=== PATIENT | female | born 1970 | race Hispanic/Latino ===

== ENCOUNTER → 2017-05-02 | Outpatient (CLI) | payer OTHER ==
--- NOTE | 2017-05-03 10:09 | REP ---
BILATERAL MAMMOGRAM: Bilateral mammogram performed in the MLO and CC projections. Routine images as well as implant displaced views are obtained bilaterally. Moderate scattered fibroglandular tissue is seen bilaterally. Questionable nodule is seen in the central left breast, somewhat inferiorly and posteriorly. On the CC view, it is slightly lateral to the nipple line. It appears somewhat oval in shape. It is not definitely visualized on the MLO view but may be inferiorly located. The moderately dense breast parenchyma limits the sensitivity of the mammogram. No clustered microcalcifications are seen. There is no evidence of extracapsular rupture of either implant. IMPRESSION: BI-RADS/ACR category 0 mammogram, incomplete. Additional imaging and/or prior mammograms for comparison. ACR 0 incomplete. Possible oval nodule left breast slightly laterally as seen on the CC view and posteriorly located. It is not definitely seen on the MLO view but may be inferior. Recommend spot compression views and ultrasound to further evaluate. ACR 0 incomplete. This mammogram was interpreted with the aid of an FDA-approved computer-aided detection system. The patient states that she/he has not had a clinical breast exam in over a year. The patient letter being requested is M0. Signed by Amrik Iglesias MD 05/03/2017 03:46 P
== END ==
LOC: M RAD 09:17
PROVIDERS: ATTEND Nurse Practitioner Family
DX: Z12.31 Encounter for screening mammogram for malignant neoplasm of breast (principal); R92.8 Other abnormal and inconclusive findings on diagnostic imaging of breast; Z98.82 Breast implant status

== ENCOUNTER → 2017-05-16 | Outpatient (CLI) | payer OTHER ==
--- NOTE | 2017-05-16 12:09 | REP ---
Digital diagnostic unilateral left breast mammogram with CAD: History: Screening mammography May 02, 2017 was BIRADS category 0 because of a possible 7 mm nodular opacity on the left. Findings: Magnified focal spot compression CC, true ML, and MLO views of the left breast demonstrate that this area compresses away to normal appearing stromal elements. No mass-like lesion or dominant nodule is seen. Breast parenchyma is moderately dense. No spiculation or microcalcification is seen. Impression: BIRADS category 2 benign left breast imaging. Repeat screening mammography recommended in 1 year. BI-RADS/ACR category 2 mammogram. Benign finding(s). Routine annual screening mammography (for women over age 40). This mammogram was interpreted with the aid of an FDA-approved computer-aided detection system. The patient states that she has not had a clinical breast exam in over a year. The patient letter being requested is m#1. Signed by Gray Trejo MD 05/16/2017 04:07 P
== END ==
LOC: M RAD 11:06
PROVIDERS: ATTEND Nurse Practitioner Family
DX: N63.0 Unspecified lump in unspecified breast (principal)

== ENCOUNTER → 2018-07-22 | Outpatient (CLI) | payer OTHER ==
--- NOTE | 2018-07-25 15:38 | DEXA ---
AP SPINE L1 - L4 1.228 0.3 0.4 LT FEMUR TOTAL 0.969 -0.3 0.0 LT NECK 0.911 -0.9 -0.3 RT FEMUR TOTAL 1.006 0.0 0.3 RT NECK 0.936 -0.7 -0.1 TOTAL BODY TOTAL OTHER COMMENTS: Normal bone densitometry of the spine and hips. FOLLOW-UP: Recommendation for the next bone density exam: 5 years. [place]
== END ==
LOC: M WHC 12:56
PROVIDERS: ATTEND Student in an Organized Health Care Education/Training Program
DX: Z13.820 Encounter for screening for osteoporosis (principal); Z92.0 Personal history of contraception

== ENCOUNTER → 2018-07-22 | Outpatient (CLI) | payer OTHER ==
--- NOTE | 2018-07-22 10:26 | REPMRS ---
Patient History The patient states she has not had a clinical breast exam in over a year. No known family history of cancer. Retro-pectoral saline implants in both breasts, 2012. Taking hormonal contraceptives for 12 years. Digital Mammo Screening Bilat: July 22, 2018 - Exam #: [id number] Bilateral CC and MLO view(s) were taken. Technologist: Regina Toscano, Technologist Prior study comparison: May 16, 2017, left breast digital mammo diagnostic unilateral performed at [facility]. May 02, 2017, bilateral digital mammo screening bilat performed at [facility]. FINDINGS: There are scattered fibroglandular densities. The visualized implant margins are smooth. Breast parenchymal density pattern is essentially symmetric. No dominant mass, clustered microcalcification, or architectural distortion is evident on either side. No significant changes when compared with prior studies. Assessment: BI-RADS/ACR category 2 mammogram. Benign Findings. Recommendation Routine screening mammogram of both breasts in 1 year (for women over age 40). This patient's Lifetime Breast Cancer RIsk is estimated at 15.0 %. This mammogram was interpreted with the aid of an FDA-approved computer-aided dectection system. Electronically Signed By: Mitchel Trejo MD 07/22/18 [id number]
== END ==
LOC: M RAD 09:59
PROVIDERS: ATTEND Student in an Organized Health Care Education/Training Program
DX: Z12.31 Encounter for screening mammogram for malignant neoplasm of breast (principal); Z98.82 Breast implant status

== ENCOUNTER → 2019-12-02 | Outpatient (CLI) | payer OTHER ==
--- NOTE | 2019-12-03 09:02 | REPMRS ---
Patient History The patient states she has not had a clinical breast exam in over a year. No known family history of cancer. Retro-pectoral saline implants in both breasts, 2012. Taking hormonal contraceptives for 12 years. Digital Woman Screen Mammo: December 02, 2019 - Exam #: [id number] Bilateral CC and MLO view(s) were taken. Technologist: Cyndie Christianson Technologist Prior study comparison: July 22, 2018, bilateral digital mammo screening bilat, performed at [facility]. May 16, 2017, left breast digital mammo diagnostic unilateral, performed at [facility]. FINDINGS: The breast tissue is extremely dense which could obscure a lesion on mammography. The Volpara volumetric breast density category is: D . The visualized implant margins are smooth. Breast parenchymal density pattern is essentially symmetric. No dominant mass, grouped microcalcification, or architectural distortion is evident on either side. 3-D tomosynthesis shows no additional findings. No significant changes when compared with prior studies. Assessment: BI-RADS/ACR category 2 mammogram. Benign Findings. Recommendation Routine screening mammogram of both breasts in 1 year (for women over age 40). This patient's Lifetime Breast Cancer RIsk is estimated at 14.7 %. This mammogram was interpreted with the aid of an FDA-approved computer-aided dectection system. Electronically Signed By: Mitchel Trejo MD 12/03/19 0902
== END ==
LOC: M WHC 15:29
PROVIDERS: ATTEND Nurse Practitioner
DX: Z12.31 Encounter for screening mammogram for malignant neoplasm of breast (principal); Z98.82 Breast implant status

== ENCOUNTER → 2022-02-27 | Outpatient (CLI) | payer OTHER | LOC: M WHC 10:45 | PROVIDERS: ATTEND Family Medicine | DX: Z12.31 Encounter for screening mammogram for malignant neoplasm of breast (principal) ==

== ENCOUNTER → 2024-07-07 | Outpatient (CLI) | payer OTHER | LOC: M WHC 11:52 | PROVIDERS: ATTEND Family Medicine | DX: Z12.31 Encounter for screening mammogram for malignant neoplasm of breast (principal); Z98.82 Breast implant status ==